=== PATIENT | male | born 1980 | race Caucasian/White ===

== ENCOUNTER 2017-03-15 03:05 | Emergency (ER) | payer OTHER ==
[~2017-03-15] VITALS: Ht 175.2 cm; Wt 108.9 kg
[~2017-03-15 03:05] MED LIST: BACTRIM DS 8001 TA1 PO; CEPHALEXIN500 M1 PO; FLONASE ALLERG9.9 ML INH; GLUCOPHAGE500 M1 PO; LIPITOR20 MG PO; LISINOPRIL20 MG PO; MOTRIN600 MG PO; SINGULAIR10 M1 PO
[2017-03-15 04:19] LABS: HEMATOCRIT 43.7 % (42.0-52.0); HEMOGLOBIN 15.1 g/dl (14.0-18.0); MEAN CELL VOLUME 95.2 fl (80.0-94.0); MEAN CORPUSCULAR HGB 32.9 pg (27.0-31.0); MEAN CORPUSCULAR HGB CONC 34.6 g/dl (33.0-37.0); MEAN PLATELET VOLUME 10.1 fl (9.6-12.3); PLATELET COUNT AUTOMATED 272 10*3/uL (130-400); RED BLOOD COUNT 4.59 10*6/uL (4.50-5.90); RED CELL DISTRI WIDTH 12.4 % (0-14.5); WHITE BLOOD COUNT 20.8 10*3/uL (4.8-10.8)
[2017-03-15 04:31] LABS: BUN 5 mg/dl (7-24); CARBON DIOXIDE 26 mmol/L (21-32); CHLORIDE 105 mmol/L (98-107); EST GLOM FILT AFRICAN AMERICAN > 60 ml/min; GLUCOSE 121 mg/dL (65-99); POTASSIUM 3.7 mmol/L (3.5-5.1); SODIUM 140 mmol/L (136-145)
[2017-03-15] MEDS ORDERED: KEFLEX500 M1 PO (04:34)
[2017-03-15 04:37] LABS: ATYPICAL LYMPHS 2 % (0-0); EOSINOPHIL # 0.8 10*3/uL (0-0.4); EOSINOPHILS 4 % (1-4); LYMPHOCYTE # 2.9 10*3/uL (1.3-4.4); MONOCYTE # 1.2 10*3/uL (0.1-1.0); NEUTROPHIL # 15.8 10*3/uL (2.3-7.9); NEUTROPHILS 76 % (47-73); PLATELET SUFFICIENCY NORMAL (NORMAL); TOTAL CELLS COUNTED 100 #CELLS
== END 2017-03-15 05:00 | disposition home or self-care (01) ==
LOC: ED 03:05
PROVIDERS: Emergency Medicine Emergency Medical Services
DX: J03.80 Acute tonsillitis due to other specified organisms (principal); B96.89 Other specified bacterial agents as the cause of diseases classified elsewhere; Z98.890 Other specified postprocedural states; Z91.040 Latex allergy status; Z79.899 Other long term (current) drug therapy; Z91.013 Allergy to seafood

== ENCOUNTER 2019-08-12 22:10 | Emergency (ER) | payer OTHER ==
[~2019-08-12] VITALS: Wt 122.5 kg
--- NOTE | ~2019-08-12 | EKG ---
[place], [place] ELECTROCARDIOGRAM REPORT NAME: RADHA TRUJILLO UNIT #: [id number] ROOM: DOCTOR: EPIPHANY DRAFT REPORT BIRTHDATE: [birth year] [facility] Test Date: 2019-08-12 Test Time: 22:59:20 Pat Name: RADHA TRUJILLO Department: Room: Gender: Process Excellence Manager: : [id number] Requested By: FRANCISCO ODONNELL PA-C Order Number: [id number] Reading MD: Sanjay Thomas MD Measurements Intervals Galt Rate: 91 P: 18 DC: 140 QRS: 16 QRSD: 84 T: 28 QT: 333 QTc: 410 Interpretive Statements Sinus rhythm ST elev, probable normal early repol pattern Compared to ECG 04/10/2019 11:21:56 No significant changes Electronically Signed On 08-14-2019 4:03:41 PDT by Sanjay Thomas MD CM:EKGRPT:ELECTROCARDIOGRAM REPORT [id number] FRANCISCO ODONNELL PA-C EPIPHANY DRAFT REPORT FRANCISCO ODONNELL PA-C
[~2019-08-12 22:10] MED LIST changes: +KEFLEX500 M1 PO
[2019-08-12 22:55] LABS: HEMATOCRIT 43.9 % (42.0-52.0); HEMOGLOBIN 15.1 g/dl (14.0-18.0); MEAN CELL VOLUME 95.2 fl (80.0-94.0); MEAN CORPUSCULAR HGB 32.8 pg (27.0-31.0); MEAN CORPUSCULAR HGB CONC 34.4 g/dl (33.0-37.0); MEAN PLATELET VOLUME 9.2 fl (9.6-12.3); PLATELET COUNT AUTOMATED 276 10*3/uL (130-400); RED BLOOD COUNT 4.61 10*6/uL (4.50-5.90); RED CELL DISTRI WIDTH 12.1 % (0-14.5); WHITE BLOOD COUNT 15.6 10*3/uL (4.8-10.8)
[2019-08-12 23:05] LABS: ACT PARTIAL THROMBO TIME 25.8 SECONDS (20.0-32.1); INTERNATIONAL NORM RATIO 0.9 (2.0-3.5)
[2019-08-12 23:12] LABS: ALBUMIN 3.4 gm/dl (3.1-4.5); ALKALINE PHOSPHATASE 94 U/L (45-117); BUN 8 mg/dl (7-24); CHLORIDE 102 mmol/L (98-107); SGOT/AST 18 IU/L (3-35); SGPT/ALT 50 U/L (12-78); SODIUM 135 mmol/L (136-145); TOTAL PROTEIN 6.9 gm/dL (6.4-8.2)
[2019-08-12 23:14] LABS: TROPONIN I < 0.015 ng/ml (<0.045)
[2019-08-12 23:22] LABS: PLATELET SUFFICIENCY NORMAL (NORMAL); TOTAL CELLS COUNTED 100 #CELLS
== END 2019-08-12 23:59 | disposition home or self-care (01) ==
LOC: ED 22:10
PROVIDERS: Physician Assistant
DX: E11.65 Type 2 diabetes mellitus with hyperglycemia (principal); R42 Dizziness and giddiness; R45.1 Restlessness and agitation; I10 Essential (primary) hypertension; I25.2 Old myocardial infarction; F17.200 Nicotine dependence, unspecified, uncomplicated; Z91.040 Latex allergy status; Z91.013 Allergy to seafood; Z79.899 Other long term (current) drug therapy

== ENCOUNTER 2020-05-29 20:27 | Emergency (ER) | payer OTHER ==
[~2020-05-29] VITALS: Ht 175.2 cm; Wt 117.9 kg
[2020-05-29] MEDS ORDERED: CEPHALEXIN500 M1 PO (20:47)
[2020-05-29] MEDS ORDERED: SEPTDS PO (20:47)
== END 2020-05-29 21:41 | disposition home or self-care (01) ==
LOC: ED 20:27
DX: L02.411 Cutaneous abscess of right axilla (principal); E11.9 Type 2 diabetes mellitus without complications; Z91.040 Latex allergy status; Z91.013 Allergy to seafood; Z79.899 Other long term (current) drug therapy

== ENCOUNTER → 2020-09-09 | Outpatient (CLI) | payer OTHER ==
[~2020-09-09] MED LIST changes: +SEPTDS PO
== END | disposition home or self-care (01) ==
LOC: RAD 12:48
PROVIDERS: ATTEND Chiropractor Orthopedic
DX: M99.03 Segmental and somatic dysfunction of lumbar region (principal)

== ENCOUNTER → 2020-09-16 | Outpatient (CLI) | payer OTHER | END | disposition home or self-care (01) | LOC: COVID19 10:51 | PROVIDERS: ATTEND Family Medicine | DX: Z20.828 Contact with and (suspected) exposure to other viral communicable diseases (principal) ==

== ENCOUNTER 2022-02-01 05:34 | Inpatient (IN) | payer OTHER ==
[~2022-02-01] VITALS: Ht 175.2 cm; Wt 113.4 kg
[2022-02-01 05:42] VITALS: BP 168/102
[2022-02-01 06:14] LABS: BASO # 0.1 10*3/uL (0.0-0.1); BASO % 0.6 % (0.0-1.0); EOS # 1.1 10*3/uL (0.0-0.4); EOS % 8.5 % (1.0-4.0); HEMATOCRIT 46.4 % (42.0-52.0); LYMPH # 4.9 10*3/uL (1.3-4.4); LYMPH % 39.3 % (27.0-41.0); MEAN CELL VOLUME 95.7 fl (80.0-94.0); MEAN CORPUSCULAR HGB CONC 35.6 g/dl (33.0-37.0); MEAN PLATELET VOLUME 9.4 fl (9.6-12.3); MONO # 0.8 10*3/uL (0.1-1.0); MONO % 6.7 % (3.0-9.0); NEUT # 5.5 10*3/uL (2.3-7.9); NEUT % 44.4 % (47.0-73.0); PLATELET COUNT AUTOMATED 276 10*3/uL (130-400); RED BLOOD COUNT 4.85 10*6/uL (4.50-5.90); WHITE BLOOD COUNT 12.4 10*3/uL (4.8-10.8)
[2022-02-01 06:26] LABS: BUN 8 mg/dl (7-24); CHLORIDE 105 mmol/L (98-107); CREATININE 0.72 mg/dL (0.70-1.30); POTASSIUM 3.8 mmol/L (3.5-5.1); SODIUM 138 mmol/L (136-145)
[2022-02-01 09:50] VITALS: BP 132/74
[2022-02-01] MEDS ORDERED: METFORMIN HYDR500 MG PO (11:41)
[2022-02-01] MEDS ORDERED: NEURONTIN400 MG PO (11:43)
[2022-02-01] MEDS ORDERED: COREG6.25 MG PO (11:43)
[2022-02-01] MEDS ORDERED: NORVASC10 MG PO (11:43)
[2022-02-01] MEDS ORDERED: JARDIANCE25 MG PO (11:44)
[2022-02-01] MEDS ORDERED: LEXAPRO10 MG PO (11:45)
[2022-02-01] MEDS ORDERED: Methadone Hydro10 MG PO (11:45)
[2022-02-01] MEDS ORDERED: DEPAKOTE500 MG PO (11:46)
[2022-02-01] MEDS ORDERED: BENADRYL ALLERG25 M5 PO (11:47)
[2022-02-01] MEDS ORDERED: MELATONIN3 MG PO (11:47)
[2022-02-01] MEDS ORDERED: LANTUS SOL100 UNIT/1 SC (11:48)
[2022-02-01 12:19] VITALS: BP 135/78
[2022-02-01 16:00] VITALS: BP 118/61
[2022-02-01 20:00] VITALS: BP 135/82
[2022-02-02] VITALS: BP 146/80
[2022-02-02 06:23] LABS: CHLORIDE 110 mmol/L (98-107); POTASSIUM 3.9 mmol/L (3.5-5.1); SODIUM 142 mmol/L (136-145)
[2022-02-02 06:24] LABS: ACT PARTIAL THROMBO TIME 28.2 SECONDS (20.0-32.1)
[2022-02-02 06:30] LABS: ALKALINE PHOSPHATASE 82 U/L (45-117); BUN 7 mg/dl (7-24); CHOLESTEROL 209 mg/dL (<200); CREATININE 0.59 mg/dL (0.70-1.30); FREE T4 0.91 ng/dl (0.76-1.46); LDL CHOLESTEROL 130 mg/dL (9-159); SGOT/AST 27 IU/L (3-35); SGPT/ALT 34 U/L (12-78); THYROID STIM HORMONE (HS) 0.842 uIU/ml (0.358-4.75); TOTAL PROTEIN 6.6 gm/dL (6.4-8.2); TRIGLYCERIDES 279 mg/dl (<150)
[2022-02-02 06:35] LABS: BASO # 0.1 10*3/uL (0.0-0.1); BASO % 0.5 % (0.0-1.0); EOS # 0.8 10*3/uL (0.0-0.4); EOS % 8.6 % (1.0-4.0); HEMATOCRIT 46.7 % (42.0-52.0); LYMPH # 4.2 10*3/uL (1.3-4.4); MEAN CELL VOLUME 96.9 fl (80.0-94.0); MEAN CORPUSCULAR HGB 33.2 pg (27.0-31.0); MEAN CORPUSCULAR HGB CONC 34.3 g/dl (33.0-37.0); MEAN PLATELET VOLUME 9.6 fl (9.6-12.3); MONO # 0.6 10*3/uL (0.1-1.0); MONO % 6.3 % (3.0-9.0); NEUT # 3.9 10*3/uL (2.3-7.9); NEUT % 40.1 % (47.0-73.0); PLATELET COUNT AUTOMATED 234 10*3/uL (130-400); RED BLOOD COUNT 4.82 10*6/uL (4.50-5.90); RED CELL DISTRI WIDTH 13.2 % (0-14.5); WHITE BLOOD COUNT 9.6 10*3/uL (4.8-10.8)
[2022-02-02 07:20] LABS: VITAMIN D, 25-HYDROXY 33.7 ng/mL (30-100)
[2022-02-02 08:00] VITALS: BP 134/78
[2022-02-02 12:00] VITALS: BP 114/78
[2022-02-02 16:00] VITALS: BP 112/70
[2022-02-02 20:00] VITALS: BP 127/76
[2022-02-03] VITALS: BP 139/81
[2022-02-03 06:43] LABS: BUN 9 mg/dl (7-24); CHLORIDE 109 mmol/L (98-107); CREATININE 0.72 mg/dL (0.70-1.30); POTASSIUM 3.7 mmol/L (3.5-5.1); SODIUM 140 mmol/L (136-145)
[2022-02-03 08:00] VITALS: BP 128/78
[2022-02-03] MEDS ORDERED: ATORVASTATIN CA20 M1 PO (10:50)
[2022-02-03] MEDS ORDERED: VIBRA-TAB100 MG PO (10:55)
== END 2022-02-03 11:59 | disposition home or self-care (01) | DRG 720 ==
LOC: ED 05:34 → EDHOLD 10:14 → 4E 10:14
PROVIDERS: Internal Medicine; ADMIT Internal Medicine; ATTEND Internal Medicine
DX: A41.9 Sepsis, unspecified organism (principal); L03.116 Cellulitis of left lower limb; L97.509 Non-pressure chronic ulcer of other part of unspecified foot with unspecified severity; E11.621 Type 2 diabetes mellitus with foot ulcer; I10 Essential (primary) hypertension; F17.210 Nicotine dependence, cigarettes, uncomplicated; E78.5 Hyperlipidemia, unspecified; Z79.899 Other long term (current) drug therapy; Z91.041 Radiographic dye allergy status; Z91.040 Latex allergy status; Z79.4 Long term (current) use of insulin; Z91.013 Allergy to seafood

== ENCOUNTER → 2022-02-08 | Outpatient (CLI) | payer OTHER ==
[~2022-02-08] MED LIST changes: +ATORVASTATIN CA20 M1 PO; +BENADRYL ALLERG25 M5 PO; +COREG6.25 MG PO; +DEPAKOTE500 MG PO; +JARDIANCE25 MG PO; +LANTUS SOL100 UNIT/1 SC; +LEXAPRO10 MG PO; +MELATONIN3 MG PO; +METFORMIN HYDR500 MG PO; +Methadone Hydro10 MG PO; +NEURONTIN400 MG PO; +NORVASC10 MG PO; +VIBRA-TAB100 MG PO
== END | disposition home or self-care (01) ==
LOC: WOUNDCARE 01:36
PROVIDERS: ATTEND Nurse Practitioner Family
DX: E11.621 Type 2 diabetes mellitus with foot ulcer (principal); L97.522 Non-pressure chronic ulcer of other part of left foot with fat layer exposed; L84 Corns and callosities; I10 Essential (primary) hypertension; E78.5 Hyperlipidemia, unspecified; F17.200 Nicotine dependence, unspecified, uncomplicated; Z79.4 Long term (current) use of insulin; Z79.84 Long term (current) use of oral hypoglycemic drugs; Z79.899 Other long term (current) drug therapy; Z98.890 Other specified postprocedural states

== ENCOUNTER → 2022-02-15 | Outpatient (CLI) | payer OTHER | END | disposition home or self-care (01) | LOC: WOUNDCARE 00:42 | PROVIDERS: ATTEND Nurse Practitioner Family | DX: E11.621 Type 2 diabetes mellitus with foot ulcer (principal); L97.521 Non-pressure chronic ulcer of other part of left foot limited to breakdown of skin; L84 Corns and callosities; E78.5 Hyperlipidemia, unspecified; F17.200 Nicotine dependence, unspecified, uncomplicated; Z79.4 Long term (current) use of insulin; Z79.899 Other long term (current) drug therapy; Z98.890 Other specified postprocedural states ==

== ENCOUNTER → 2022-02-19 | Outpatient (CLI) | payer OTHER | END | disposition home or self-care (01) | LOC: WOUNDCARE 00:46 | PROVIDERS: ATTEND Nurse Practitioner Family | DX: E11.621 Type 2 diabetes mellitus with foot ulcer (principal); L97.521 Non-pressure chronic ulcer of other part of left foot limited to breakdown of skin; L84 Corns and callosities; E78.5 Hyperlipidemia, unspecified; F17.200 Nicotine dependence, unspecified, uncomplicated; Z79.899 Other long term (current) drug therapy; Z98.890 Other specified postprocedural states ==

== ENCOUNTER → 2022-02-22 | Outpatient (CLI) | payer OTHER | END | disposition home or self-care (01) | LOC: WOUNDCARE 02:55 | PROVIDERS: ATTEND Nurse Practitioner Family | DX: E11.621 Type 2 diabetes mellitus with foot ulcer (principal); L97.521 Non-pressure chronic ulcer of other part of left foot limited to breakdown of skin; L84 Corns and callosities; E78.5 Hyperlipidemia, unspecified; I10 Essential (primary) hypertension; F17.200 Nicotine dependence, unspecified, uncomplicated ==

== ENCOUNTER → 2022-03-03 | Outpatient (CLI) | payer OTHER | END | disposition home or self-care (01) | LOC: WOUNDCARE 01:31 | PROVIDERS: ATTEND Nurse Practitioner Family | DX: E11.621 Type 2 diabetes mellitus with foot ulcer (principal); L97.522 Non-pressure chronic ulcer of other part of left foot with fat layer exposed; L84 Corns and callosities; E78.5 Hyperlipidemia, unspecified; I10 Essential (primary) hypertension; F17.200 Nicotine dependence, unspecified, uncomplicated ==

== ENCOUNTER → 2022-03-10 | Outpatient (CLI) | payer OTHER | LOC: WOUNDCARE 00:44 | PROVIDERS: ATTEND Nurse Practitioner Family | DX: E11.621 Type 2 diabetes mellitus with foot ulcer (principal); L97.522 Non-pressure chronic ulcer of other part of left foot with fat layer exposed; L84 Corns and callosities; E78.5 Hyperlipidemia, unspecified; I10 Essential (primary) hypertension; F17.200 Nicotine dependence, unspecified, uncomplicated ==

== ENCOUNTER → 2022-03-12 | Outpatient (CLI) | payer OTHER | END | disposition home or self-care (01) | LOC: WOUNDCARE 00:51 | PROVIDERS: ATTEND Nurse Practitioner Family | DX: E11.621 Type 2 diabetes mellitus with foot ulcer (principal); L97.522 Non-pressure chronic ulcer of other part of left foot with fat layer exposed; L84 Corns and callosities; E78.5 Hyperlipidemia, unspecified; I10 Essential (primary) hypertension; F17.200 Nicotine dependence, unspecified, uncomplicated ==

== ENCOUNTER → 2022-03-18 | Outpatient (CLI) | payer OTHER | LOC: WOUNDCARE 01:28 | PROVIDERS: ATTEND Nurse Practitioner Family | DX: E11.621 Type 2 diabetes mellitus with foot ulcer (principal); L97.522 Non-pressure chronic ulcer of other part of left foot with fat layer exposed; L84 Corns and callosities; E78.5 Hyperlipidemia, unspecified; I10 Essential (primary) hypertension; F17.200 Nicotine dependence, unspecified, uncomplicated ==

== ENCOUNTER → 2022-03-26 | Outpatient (CLI) | payer OTHER | END | disposition home or self-care (01) | LOC: WOUNDCARE 01:43 | PROVIDERS: ATTEND Nurse Practitioner Family | DX: E11.621 Type 2 diabetes mellitus with foot ulcer (principal); L97.522 Non-pressure chronic ulcer of other part of left foot with fat layer exposed; E78.5 Hyperlipidemia, unspecified; I10 Essential (primary) hypertension; F17.200 Nicotine dependence, unspecified, uncomplicated ==

== ENCOUNTER → 2022-04-02 | Outpatient (CLI) | payer OTHER | END | disposition home or self-care (01) | LOC: WOUNDCARE 00:36 | PROVIDERS: ATTEND Nurse Practitioner Family | DX: E11.621 Type 2 diabetes mellitus with foot ulcer (principal); L97.522 Non-pressure chronic ulcer of other part of left foot with fat layer exposed; L84 Corns and callosities; E78.5 Hyperlipidemia, unspecified; I10 Essential (primary) hypertension; F32.A Depression, unspecified; F17.200 Nicotine dependence, unspecified, uncomplicated ==

== ENCOUNTER → 2022-04-09 | Outpatient (CLI) | payer OTHER | END | disposition home or self-care (01) | LOC: WOUNDCARE 07:15 | PROVIDERS: ATTEND Nurse Practitioner Family | DX: E11.621 Type 2 diabetes mellitus with foot ulcer (principal); L97.522 Non-pressure chronic ulcer of other part of left foot with fat layer exposed; L84 Corns and callosities; E78.5 Hyperlipidemia, unspecified; I10 Essential (primary) hypertension; F32.A Depression, unspecified; F17.200 Nicotine dependence, unspecified, uncomplicated ==

== ENCOUNTER → 2022-04-15 | Outpatient (CLI) | payer OTHER | LOC: WOUNDCARE 03:08 | PROVIDERS: ATTEND Nurse Practitioner Family | DX: E11.621 Type 2 diabetes mellitus with foot ulcer (principal); L97.522 Non-pressure chronic ulcer of other part of left foot with fat layer exposed; L84 Corns and callosities; E78.5 Hyperlipidemia, unspecified; I10 Essential (primary) hypertension; F32.A Depression, unspecified; F17.200 Nicotine dependence, unspecified, uncomplicated ==

== ENCOUNTER → 2022-04-19 | Outpatient (CLI) | payer OTHER | END | disposition home or self-care (01) | LOC: WOUNDCARE 02:49 → LAB 02:49 → WOUNDCARE 10:37 | PROVIDERS: ATTEND Podiatrist Foot & Ankle Surgery | DX: E11.621 Type 2 diabetes mellitus with foot ulcer (principal); L97.522 Non-pressure chronic ulcer of other part of left foot with fat layer exposed; L84 Corns and callosities; R60.0 Localized edema; E78.5 Hyperlipidemia, unspecified; I10 Essential (primary) hypertension; M76.822 Posterior tibial tendinitis, left leg; M19.172 Post-traumatic osteoarthritis, left ankle and foot; F17.200 Nicotine dependence, unspecified, uncomplicated ==

== ENCOUNTER → 2022-04-29 | Outpatient (CLI) | payer OTHER | END | disposition home or self-care (01) | LOC: MRI 09:00 | PROVIDERS: ATTEND Podiatrist | DX: Z98.1 Arthrodesis status (principal); M19.072 Primary osteoarthritis, left ankle and foot; M93.972 Osteochondropathy, unspecified, left ankle and foot; M20.12 Hallux valgus (acquired), left foot; E11.621 Type 2 diabetes mellitus with foot ulcer; L97.522 Non-pressure chronic ulcer of other part of left foot with fat layer exposed; M76.822 Posterior tibial tendinitis, left leg ==

== ENCOUNTER → 2022-05-03 | Outpatient (CLI) | payer OTHER | LOC: WOUNDCARE 05:26 → US 13:00 | PROVIDERS: ATTEND Podiatrist Foot & Ankle Surgery | DX: E11.621 Type 2 diabetes mellitus with foot ulcer (principal); L97.522 Non-pressure chronic ulcer of other part of left foot with fat layer exposed; L84 Corns and callosities; E78.5 Hyperlipidemia, unspecified; I10 Essential (primary) hypertension; R60.0 Localized edema; M76.822 Posterior tibial tendinitis, left leg; M19.172 Post-traumatic osteoarthritis, left ankle and foot; F17.200 Nicotine dependence, unspecified, uncomplicated ==

== ENCOUNTER → 2022-05-12 | Outpatient (CLI) | payer OTHER | END | disposition home or self-care (01) | LOC: WOUNDCARE 02:39 | PROVIDERS: ATTEND Nurse Practitioner Family | DX: E11.621 Type 2 diabetes mellitus with foot ulcer (principal); L97.522 Non-pressure chronic ulcer of other part of left foot with fat layer exposed; L84 Corns and callosities; E78.5 Hyperlipidemia, unspecified; I10 Essential (primary) hypertension; R60.0 Localized edema; M76.822 Posterior tibial tendinitis, left leg; M19.172 Post-traumatic osteoarthritis, left ankle and foot; F17.200 Nicotine dependence, unspecified, uncomplicated ==

== ENCOUNTER → 2022-05-21 | Outpatient (CLI) | payer OTHER | END | disposition home or self-care (01) | LOC: WOUNDCARE 00:44 | PROVIDERS: ATTEND Nurse Practitioner Family | DX: E11.621 Type 2 diabetes mellitus with foot ulcer (principal); L97.522 Non-pressure chronic ulcer of other part of left foot with fat layer exposed; R60.0 Localized edema; E78.5 Hyperlipidemia, unspecified; I10 Essential (primary) hypertension; M76.822 Posterior tibial tendinitis, left leg; M19.172 Post-traumatic osteoarthritis, left ankle and foot; F17.200 Nicotine dependence, unspecified, uncomplicated ==

== ENCOUNTER → 2022-05-27 | Outpatient (CLI) | payer OTHER | END | disposition home or self-care (01) | LOC: WOUNDCARE 02:27 | PROVIDERS: ATTEND Nurse Practitioner Family | DX: E11.621 Type 2 diabetes mellitus with foot ulcer (principal); L97.522 Non-pressure chronic ulcer of other part of left foot with fat layer exposed; L84 Corns and callosities; R60.0 Localized edema; E78.5 Hyperlipidemia, unspecified; I10 Essential (primary) hypertension; M76.822 Posterior tibial tendinitis, left leg; M19.172 Post-traumatic osteoarthritis, left ankle and foot; F17.200 Nicotine dependence, unspecified, uncomplicated ==

== ENCOUNTER → 2022-06-04 | Outpatient (CLI) | payer OTHER | END | disposition home or self-care (01) | LOC: WOUNDCARE 01:54 | PROVIDERS: ATTEND Nurse Practitioner Family | DX: E11.621 Type 2 diabetes mellitus with foot ulcer (principal); L97.522 Non-pressure chronic ulcer of other part of left foot with fat layer exposed; L84 Corns and callosities; R60.0 Localized edema; E78.5 Hyperlipidemia, unspecified; I10 Essential (primary) hypertension; M76.822 Posterior tibial tendinitis, left leg; M19.172 Post-traumatic osteoarthritis, left ankle and foot; F17.200 Nicotine dependence, unspecified, uncomplicated ==

== ENCOUNTER → 2022-06-24 | Outpatient (CLI) | payer OTHER | END | disposition home or self-care (01) | LOC: WOUNDCARE 00:58 | PROVIDERS: ATTEND Nurse Practitioner Family | DX: E11.621 Type 2 diabetes mellitus with foot ulcer (principal); L97.522 Non-pressure chronic ulcer of other part of left foot with fat layer exposed; L84 Corns and callosities; R60.0 Localized edema; M76.822 Posterior tibial tendinitis, left leg; M19.172 Post-traumatic osteoarthritis, left ankle and foot; I10 Essential (primary) hypertension; E78.5 Hyperlipidemia, unspecified; F17.200 Nicotine dependence, unspecified, uncomplicated ==

== ENCOUNTER → 2022-07-08 | Outpatient (CLI) | payer OTHER | END | disposition home or self-care (01) | LOC: WOUNDCARE 02:24 | PROVIDERS: ATTEND Nurse Practitioner Family | DX: E11.621 Type 2 diabetes mellitus with foot ulcer (principal); L97.522 Non-pressure chronic ulcer of other part of left foot with fat layer exposed; L84 Corns and callosities; R60.0 Localized edema; E78.5 Hyperlipidemia, unspecified; I10 Essential (primary) hypertension; M76.822 Posterior tibial tendinitis, left leg; M19.172 Post-traumatic osteoarthritis, left ankle and foot; F17.200 Nicotine dependence, unspecified, uncomplicated ==

== ENCOUNTER → 2023-08-05 | Outpatient (CLI) | payer OTHER | LOC: WOUNDCARE 00:17 | PROVIDERS: ATTEND Nurse Practitioner Family | DX: T87.89 Other complications of amputation stump (principal); E11.622 Type 2 diabetes mellitus with other skin ulcer; L97.824 Non-pressure chronic ulcer of other part of left lower leg with necrosis of bone; E11.69 Type 2 diabetes mellitus with other specified complication; M86.60 Other chronic osteomyelitis, unspecified site; E11.51 Type 2 diabetes mellitus with diabetic peripheral angiopathy without gangrene; E78.5 Hyperlipidemia, unspecified; I10 Essential (primary) hypertension; G40.909 Epilepsy, unspecified, not intractable, without status epilepticus; G47.33 Obstructive sleep apnea (adult) (pediatric); F32.9 Major depressive disorder, single episode, unspecified; F17.200 Nicotine dependence, unspecified, uncomplicated; Z87.39 Personal history of other diseases of the musculoskeletal system and connective tissue; Z89.412 Acquired absence of left great toe; Z89.512 Acquired absence of left leg below knee; Y83.5 Amputation of limb(s) as the cause of abnormal reaction of the patient, or of later complication, without mention of misadventure at the time of the procedure ==

== ENCOUNTER → 2023-08-09 | Outpatient (CLI) | payer OTHER ==
[2023-08-09 14:22] LABS: HEMATOCRIT 49.8 % (42.0-52.0); MEAN CELL VOLUME 97.8 fl (80.0-94.0); MEAN CORPUSCULAR HGB 33.8 pg (27.0-31.0); MEAN CORPUSCULAR HGB CONC 34.5 g/dl (33.0-37.0); MEAN PLATELET VOLUME 9.5 fl (9.6-12.3); PLATELET COUNT AUTOMATED 310 10*3/uL (130-400); RED BLOOD COUNT 5.09 10*6/uL (4.50-5.90); RED CELL DISTRI WIDTH 13.2 % (0-14.5); WHITE BLOOD COUNT 14.5 10*3/uL (4.8-10.8)
[2023-08-09 14:24] LABS: MANUAL DIFF REFLEX YES
[2023-08-09 14:34] LABS: CHLORIDE 108 mmol/L (98-107); POTASSIUM 4.3 mmol/L (3.4-5.1)
[2023-08-09 14:35] LABS: BUN < 5 mg/dl (9-23)
[2023-08-09 14:56] LABS: ATYPICAL LYMPHS 4 % (0-0); PLATELET SUFFICIENCY NORMAL (NORMAL); TOTAL CELLS COUNTED 100 #CELLS
== END | disposition home or self-care (01) ==
LOC: LAB 04:35 → WOUNDCARE 04:35
PROVIDERS: ATTEND Nurse Practitioner Family
DX: T87.89 Other complications of amputation stump (principal); E11.622 Type 2 diabetes mellitus with other skin ulcer; L97.824 Non-pressure chronic ulcer of other part of left lower leg with necrosis of bone; M86.60 Other chronic osteomyelitis, unspecified site; E78.5 Hyperlipidemia, unspecified; I10 Essential (primary) hypertension; G47.33 Obstructive sleep apnea (adult) (pediatric); G40.909 Epilepsy, unspecified, not intractable, without status epilepticus; F32.9 Major depressive disorder, single episode, unspecified; F17.200 Nicotine dependence, unspecified, uncomplicated; Z87.39 Personal history of other diseases of the musculoskeletal system and connective tissue; Y83.5 Amputation of limb(s) as the cause of abnormal reaction of the patient, or of later complication, without mention of misadventure at the time of the procedure

== ENCOUNTER 2025-06-09 08:12 | Emergency (ER) | payer OTHER ==
[~2025-06-09] VITALS: Ht 175.2 cm; Wt 113.4 kg
[2025-06-09] MEDS ORDERED: HYDROXYZINE HCL25 MG PO (08:45)
[2025-06-09] MEDS ORDERED: PREDNISONE20 M1 PO (08:45)
[2025-06-09] MEDS ORDERED: Dexamethasone Sodium Phospha 20 MG/5 ML VIAL IM ONE (08:45)
[2025-06-09] MEDS ORDERED: PEPCID20 MG PO (08:45)
[2025-06-09] MEDS ORDERED: FAMOTIDINE 20 MG TAB PO ONE (08:45)
== END 2025-06-09 13:48 | disposition home or self-care (01) ==
LOC: ED 08:12
DX: L23.9 Allergic contact dermatitis, unspecified cause (principal); I10 Essential (primary) hypertension; E11.9 Type 2 diabetes mellitus without complications; Z91.040 Latex allergy status; Z91.013 Allergy to seafood; Z98.890 Other specified postprocedural states

== ENCOUNTER 2025-06-12 14:57 | Emergency (ER) | payer OTHER ==
[~2025-06-12] VITALS: Ht 175.2 cm; Wt 115.0 kg
[~2025-06-12 14:57] MED LIST changes: +HYDROXYZINE HCL25 MG PO; +PEPCID20 MG PO; +PREDNISONE20 M1 PO
[2025-06-12 15:32] LABS: MEAN CELL VOLUME 98.4 fl (80.0-94.0); MEAN CORPUSCULAR HGB 32.2 pg (27.0-31.0); MEAN PLATELET VOLUME 8.9 fl (9.6-12.3); NUCLEATED RED BLOOD CELL 0.0 10*3/uL (0.0-0.0); NUCLEATED RED BLOOD CELL 0.1 % (0.0-0.0); PLATELET COUNT AUTOMATED 443 10*3/uL (130-400); RED CELL DISTRI WIDTH 12.7 % (0-14.5)
[2025-06-12 15:34] LABS: VENOUS BLOOD GAS O2 SAT 70.8 % (60.0-85.0)
[2025-06-12 15:35] LABS: MANUAL DIFF REFLEX YES
[2025-06-12] MEDS ORDERED: ETOMIDATE 20 MG/10 ML VIAL IV ONE ×2 (15:50→20:45)
[2025-06-12] MEDS ORDERED: ROCURONIUM BROMIDE 50 MG/5 ML SYRINGE IV ONE ×2 (15:50→20:45)
[2025-06-12] MEDS ORDERED: PROPOFOL 100 ML IV SCH (15:55)
[2025-06-12] MEDS ORDERED: FUROSEMIDE 40 MG/4 ML VIAL IV ONE ×2 (15:55→16:35)
[2025-06-12] MEDS ORDERED: Dextrose/Nitroglycerin 250 ML IV SCH (15:55)
[2025-06-12 15:59] LABS: BUN 19 mg/dl (9-23); CPK 126 U/L (34-171); SGPT/ALT 85 U/L (5-49)
[2025-06-12] MEDS ORDERED: PROPOFOL 100 ML IV ONE (16:09)
[2025-06-12 16:11] LABS: ETHYL ALCOHOL < 3.0 mg/dl (<3)
[2025-06-12] MEDS ORDERED: Labetalol Hydrochloride 20 MG/4 ML SYR IV ONE (16:20)
[2025-06-12 16:28] LABS: PLATELET SUFFICIENCY HIGH (NORMAL)
[2025-06-12 16:30] LABS: ABG BASE EXCESS 2.8 mmol/L (-2.0-3.0); ABG O2 SATURATION 89.9 % (94.0-98.0); ARTERIAL BLOOD GAS PH 7.26 (7.350-7.450); ARTERIAL BLOOD GAS PO2 71.3 mmHg (83.0-108.0)
[2025-06-12] MEDS ORDERED: SODIUM BICARBONATE 50 MEQ/50 ML VIAL IV ONE ×2 (16:35)
[2025-06-12 17:33] LABS: BILIRUBIN Negative (Negative); BLOOD Negative (Negative); CLARITY Clear (Clear); COLOR Yellow (Yellow); KETONE Trace (Negative); LEUKO ESTERASE Negative (Negative); NITRITE Negative (Negative); PH 5.5 (4.5-8.0); SPECIFIC GRAVITY 1.025 (1.001-1.030); UROBILINOGEN 1.0 E.U./dl (0.0-1.0)
[2025-06-12] MEDS ORDERED: fentaNYL CITRATE/PF 50 MCG/ML SYRINGE ONE ×2 (17:37→18:37)
[2025-06-12] MEDS ORDERED: Midazolam Hydrochloride 2 MG/2 ML VIAL ONE ×2 (17:37→18:37)
[2025-06-12 17:40] LABS: URINE AMPHETAMINES Negative (1000ng/ml); URINE BARBITURATES Negative (200ng/ml); URINE BENZODIAZEPINES Negative (200ng/ml); URINE CANNABINOIDS (THC) Negative (50ng/ml); URINE COCAINE Negative (300ng/ml); URINE METHADONE Positive (300ng/ml); URINE OPIATES Negative (300ng/ml); URINE PHENCYCLIDINE Negative (25ng/ml)
[2025-06-12 17:47] LABS: RBC 0-2 rbc/hpf (0-2); WBC 0-2 wbc/hpf (0-5)
[2025-06-12] MEDS ORDERED: SODIUM CHLORIDE 0.9% 1,000 ML IV ONE (18:50)
[2025-06-12] MEDS ORDERED: NOREPINEPHRINE BITARTRATE/D5W 250 ML IV ONE (19:00)
[2025-06-12] MEDS ORDERED: NOREPINEPHRINE BITARTRATE/D5W 250 ML IV SCH (19:00)
[2025-06-12] MEDS ORDERED: AUVELITY ER 451 EACH PO (19:53)
[2025-06-12] MEDS ORDERED: LYRICA200 M1 PO (19:54)
[2025-06-12] MEDS ORDERED: TAMSULOSIN HCL0.4 MG PO (19:55)
[2025-06-12] MEDS ORDERED: ABILIFY2 MG PO (19:55)
[2025-06-12] MEDS ORDERED: HEPARIN SODIUM 250 ML IV SCH (19:55)
[2025-06-12] MEDS ORDERED: VITAMIN D-40010 MCG PO (19:57)
[2025-06-12] MEDS ORDERED: ASPIRIN ADULT L81 M1 PO (19:58)
[2025-06-12] MEDS ORDERED: OZEMPIC2 MG/0.71 SQ (20:00)
[2025-06-12] MEDS ORDERED: Midazolam Hydrochloride 2 MG/2 ML VIAL IV ONE (20:50)
== END 2025-06-12 21:52 | disposition short-term general hospital (02) ==
LOC: ED 14:57
PROVIDERS: Nurse Practitioner Family
DX: I21.3 ST elevation (STEMI) myocardial infarction of unspecified site (principal); J81.0 Acute pulmonary edema; E11.65 Type 2 diabetes mellitus with hyperglycemia; I10 Essential (primary) hypertension; I25.2 Old myocardial infarction; F32.9 Major depressive disorder, single episode, unspecified; F17.200 Nicotine dependence, unspecified, uncomplicated; Z89.512 Acquired absence of left leg below knee; Z91.041 Radiographic dye allergy status; Z91.040 Latex allergy status; Z91.013 Allergy to seafood; Z79.899 Other long term (current) drug therapy; Z79.82 Long term (current) use of aspirin; Z98.890 Other specified postprocedural states